=== PATIENT | female | born 1990 | race Two or more races ===

== ENCOUNTER 2025-03-30 09:45 | Observation (INO) | payer BC, MEDICAID ==
[~2025-03-30 09:45] MED LIST: PREN27TA7 OR
--- NOTE | 2025-03-30 11:46 | DVH ---
BIOPHYSICAL PROFILE HISTORY: GDMA1 TECHNIQUE: Multiple transabdominal real-time grayscale sonographic images through the gravid uterus of the fetus with duplex Doppler color flow and M-mode spectral analysis FINDINGS: BIOPHYSICAL PROFILE: breathing score: 2 of 2 movement score: 2of 2 tone score: 2 of 2 Quantitative SHEREE score: 2 of 2 (SHEREE: 16 Cm.) Total score: 8 of 8 The cervix closed Single live fetus in cephalic presentation. heart rate 152 beats per minute. Posterior placenta without previa or abruption IMPRESSION: 1. Biophysical profile score: 8 of 8
--- NOTE | 2025-03-31 09:28 | DVHDS2 ---
Physician Discharge Progress N Final Diagnosis: GDM 32 WKS Operations or Procedures: Operations or Procedures NST REACTIVE REVIWED,SONO Condition on Discharge: Good Disposition: Home Discharge Instructions: Diet: Regular Activity: No Restrictions, As Tolerated Medications: NA Follow Up Care: Specialist: 1W Discharge Statement: "Patient was advised to return to the ER or call 911 if any headaches, dizziness, shortness of breath, chest pain, abdominal pain, bleeding, fevers, or worsening of medical condition. Patient was counseled about treatment plan, medications, possible side effects, patientverbalized understanding. All questions were answered to the best of my ability. This discharge took greater then 30 minutes in planning, reviewing documenta tion, counseling the patient, and discussing with other team members." Visit Coding OBGYN Date of Service: Mar 30, 2025 Billing Provider: TRACI KAHN DO PMO LEAD Common Visit Codes: 97518-SLYMPAM OBS CARE (HIGH) PMO LEAD Procedure Codes: 78142-69- NON-STRESS TEST TRACI KAHN DO Mar 31, 2025 09:28
== END 2025-03-30 11:47 | disposition home or self-care (01) ==
LOC: LDRP 09:45
PROVIDERS: ADMIT Obstetrics & Gynecology; ATTEND Obstetrics & Gynecology
DX: O24.419 Gestational diabetes mellitus in pregnancy, unspecified control (principal); Z3A.32 32 weeks gestation of pregnancy; Z98.890 Other specified postprocedural states
CPT/HCPCS: 76818; 81002; 82962; 94760; G0378; 59025; 76819

== ENCOUNTER 2025-04-05 08:48 | Observation (INO) | payer BC, MEDICAID ==
--- NOTE | 2025-04-05 09:39 | DVH ---
BIOPHYSICAL PROFILE HISTORY: GDMA1 Comparison Study: US BIOPHYSICAL PROFILE on DOS: 03/30/25 TECHNIQUE: Multiple real-time grayscale sonographic images through the gravid uterus of the fetus wi th duplex Doppler color flow and M-mode spectral analysis FINDINGS: BIOPHYSICAL PROFILE: breathing score: 2 movement score: 2 tone score: 2 Quantitative SHEREE score: 2 (SHEREE: 14.7 Cm.) Total score: 8 The cervix is closed and measures 4.0 cm. Single live fetus in cephalic presentation. heart rate 149 beats per minute. Posterior placenta without previa or abruption IMPRESSION: Biophysical profile score: 8
--- NOTE | 2025-04-05 12:32 | DVHDS2 ---
Physician Discharge Progress N Final Diagnosis: GDMA1 Operations or Procedures: Operations or Procedures NST/BPP SHEREE All normal Condition on Discharge: Stable Disposition: Home Discharge Instructions: Diet: Consistent carbohydrate Activity: No Restrictions, As Tolerated Follow Up/Referral: as scheduled Medications: NA Follow Up Care: Discharge Statement: "Patient was advised to return to the ER or call 911 if any headaches, dizziness, shortness of breath, chest pain, abdominal pain, bleeding, fevers, or worsening of medical condition. Patient was counseled about treatment plan, medications, possible side effects, patientverbalized understanding. All questions were answered to the best of my ability. This discharge took greater then 30 minutes in planning, reviewing documentation, counseling the patient, and discussing with other team members." Visit Coding OBGYN Date of Service: Apr 05, 2025 Billing Provider: KANDY DE ANDA DO SECURITY OPERATIONS SPECIALIST Common Visit Codes: 22254-OBV/OBS SAME DATE (MOD) SECURITY OPERATIONS SPECIALIST Procedure Codes: 91118-12- NON-STRESS TEST KANDY DE ANDA DO Apr 05, 2025 12:32
== END 2025-04-05 10:10 | disposition home or self-care (01) ==
LOC: LDRP 08:48 → UNDOADMOB 08:48 → LDRP 09:04 → UNDODISOB 10:10
PROVIDERS: ADMIT Obstetrics & Gynecology; ATTEND Obstetrics & Gynecology
DX: O24.410 Gestational diabetes mellitus in pregnancy, diet controlled (principal); Z3A.33 33 weeks gestation of pregnancy; Z79.899 Other long term (current) drug therapy; Z98.890 Other specified postprocedural states
CPT/HCPCS: 76818; 81002; 82948; 82962; G0378; 59025; 76819

== ENCOUNTER 2025-04-12 08:52 | Observation (INO) | payer BC, MEDICAID ==
--- NOTE | 2025-04-12 10:15 | DVH ---
BIOPHYSICAL PROFILE HISTORY: gdma1 TECHNIQUE: Multiple transabdominal real-time grayscale sonographic images through the gravid uterus of the fetus with duplex Doppler color flow and M-mode spectral analysis FINDINGS: BIOPHYSICAL PROFILE: breathing score: 2 movement score: 2 tone score: 2 Quantitative SHEREE score: 2 (SHEREE: 12.4 Cm.) Total score: 8 The cervix visualized. Single live fetus in cephalic presentation. heart rate 153 beats per minute. Posterior placenta without previa or abruption IMPRESSION: Biophysical profile score: 8
--- NOTE | 2025-04-12 13:24 | DVHDS2 ---
Physician Discharge Progress N Final Diagnosis: [id number] Operations or Procedures: Operations or Procedures nst reactive reviwed,sono Condition on Discharge: Good Disposition: Home Discharge Instructions: Diet: Regular Activity: No Restrictions, As Tolerated Medications: na Follow Up Care: Specialist: 4d Discharge Statement: "Patient was advised to return to the ER or call 911 if any headaches, dizziness, shortness of breath, chest pain, abdominal pain, bleeding, fevers, or worsening of medical condition. Patient was counseled about treatment plan, medications, possible side effects, patientverbalized understanding. All questions were answered to the best of my ability. This discharge took greater then 30 minutes in planning, reviewing documentati on, counseling the patient, and discussing with other team members." Visit Coding OBGYN Date of Service: Apr 12, 2025 Billing Provider: TRACI KAHN DO WORK STATION SUPPORT SPECIALIST Common Visit Codes: 54133-[id number] OBS CARE (HIGH) WORK STATION SUPPORT SPECIALIST Procedure Codes: 29618-33- NON-STRESS TEST TRACI KAHN DO Apr 12, 2025 13:24
== END 2025-04-12 10:35 | disposition home or self-care (01) ==
LOC: LDRP 09:09
PROVIDERS: ADMIT Obstetrics & Gynecology; ATTEND Obstetrics & Gynecology
DX: O24.419 Gestational diabetes mellitus in pregnancy, unspecified control (principal); Z3A.34 34 weeks gestation of pregnancy; Z98.890 Other specified postprocedural states
CPT/HCPCS: 76818; 81002; 82948; 82962; 94760; G0378; 59025; 76819

== ENCOUNTER 2025-04-19 08:45 | Observation (INO) | payer BC, MEDICAID ==
--- NOTE | 2025-04-19 09:27 | DVH ---
BIOPHYSICAL PROFILE HISTORY: GDMA1 TECHNIQUE: Multiple transabdominal real-time grayscale sonographic images through the gravid uterus of the fetus with duplex Doppler color flow and M-mode spectral analysis FINDINGS: BIOPHYSICAL PROFILE: breathing score: 2 movement score: 2 tone score: 2 Quantitative SHEREE score: 2 (SHEREE: 11.7 Cm.) Total score: 8 The cervix not well visualized. Single live fetus in cephalic presentation. heart rate 136 beats per minute. Posterior placenta without previa or abruption IMPRESSION: Biophysical profile score: 8
--- NOTE | 2025-04-19 12:19 | DVHDS2 ---
Physician Discharge Progress N Final Diagnosis: gdm Operations or Procedures: Operations or Procedures nst reactive reviwed,sono Condition on Discharge: Good Disposition: Home Discharge Instructions: Diet: Regular Activity: No Restrictions, As Tolerated Medications: na Follow Up Care: Specialist: 1w Discharge Statement: "Patient was advised to return to the ER or call 911 if any headaches, dizziness, shortness of breath, chest pain, abdominal pain, bleeding, fevers, or worsening of medical condition. Patient was counseled about treatment plan, medications, possible side effects, patientverbalized understanding. All questions were answered to the best of my ability. This discharge took greater then 30 minutes in planning, reviewing documentation, counseling the patient, and discussing with other team members." Visit Coding OBGYN Date of Service: Apr 19, 2025 Billing Provider: TRACI KAHN DO BAND BIAS MACHINE OPERATOR Common Visit Codes: 43144-TORVBMY OBS CARE (HIGH) BAND BIAS MACHINE OPERATOR Procedure Codes: 95647-46- NON-STRESS TEST TRACI KAHN DO Apr 19, 2025 12:19
== END 2025-04-19 10:00 | disposition home or self-care (01) ==
LOC: LDRP 08:45
PROVIDERS: ADMIT Obstetrics & Gynecology; ATTEND Obstetrics & Gynecology
DX: O24.419 Gestational diabetes mellitus in pregnancy, unspecified control (principal); Z98.890 Other specified postprocedural states; Z3A.35 35 weeks gestation of pregnancy
CPT/HCPCS: 76818; 81002; 82948; 82962; G0378; 59025; 76819

== ENCOUNTER 2025-04-26 06:28 | Observation (INO) | payer BC, MEDICAID ==
--- NOTE | 2025-04-26 09:48 | DVH ---
BIOPHYSICAL PROFILE HISTORY: GDMA1 Comparison Study: US BIOPHYSICAL PROFILE on DOS: 04/19/25, US BIOPHYSICAL PROFILE on DOS: 04/12/25, US BIOPHYSICAL PROFILE on DOS: 04/05/25, US BIOPHYSICAL PROFILE on DOS: 03/30/25 TECHNIQUE: Multiple real-time grayscale sonographic images through the gravid uterus of the fetus wi th duplex Doppler color flow and M-mode spectral analysis FINDINGS: BIOPHYSICAL PROFILE: breathing score: 2 movement score: 2 tone score: 2 Quantitative SHEREE score: 2 (SHEREE: 10.1 Cm.) Total score: 8 Single live fetus in cephalic presentation. heart rate 138 beats per minute. Posterior placenta without previa or abruption IMPRESSION: Biophysical profile score: 8
--- NOTE | 2025-04-26 11:08 | DVHDS2 ---
Physician Discharge Progress N Final Diagnosis: GDMA1 Operations or Procedures: Operations or Procedures Encounter for NST/BPP/SHEREE Commentary: Commentary PATIENT: ALEX ALVARADO EACCT: [id number] UNIT: [id number] : 1990 LOC: LD ROOM / BED: TRIAGE3 / A AGE / SEX: 34 / F ADM STATUS: ADM IN SERVICE 0849 ORDERING PHYSICIAN: KANDY DE ANDA DO PROCEDURE(s): BPP - BIOPHYSICAL PROFILE REASON: GDMA1 ORDER NUMBER(s): [id number], ACCESSION NUMBER(s): [id number] BIOPHYSICAL PROFILE HISTORY: GDMA1 Comparison Study: US BIOPHYSICAL PROFILE on DOS: 04/19/25, US BIOPHYSICAL PROFILE on DOS: 04/12/25, US BIOPHYSICAL PROFILE on DOS: 04/05/25, US BIOPHYSICAL PROFILE on DOS: 03/30/25 TECHNIQUE: Multiple real-time grayscale sonographic images through the gravid uterus of the fetus with duplex Doppler color flow and M-mode spectral analysis FINDINGS: BIOPHYSICAL PROFILE: breathing score: 2 movement score: 2 tone score: 2 Quantitative SHREEE score: 2 (SHEREE: 10.1 Cm.) Total score: 8 Single live fetus in cephalic presentation. heart rate 138 beats per minute. Posterior placenta without previa or abruption IMPRESSION: Biophysical profile score: 8 Condition on Discharge: Stable Disposition: Home Discharge Instructions: Diet: Regular Activity: No Restrictions, As Tolerated Follow Up/Referral: As scheduled Medications: NA Follow Up Care: Discharge Statement: "Patient was advised to return to the ER or call 911 if any headaches, dizziness, shortness of breath, chest pain, abdominal pain, bleeding, fevers, or worsening of medical condition. Patient was counseled about treatment plan, medications, possible side effects, patientverbalized understanding. All questions were answered to the best of my ability. This discharge took greater then 30 minutes in planning, reviewing documentation, counseling the patient, and discussing with other team members." Visit Coding OBGYN Date of Service: Apr 26, 2025 Billing Provider: KANDY DE ANDA DO INSTRUCTOR BRIDGE Common Visit Codes: 36915-YBA/OBS SAME DATE (HIGH) INSTRUCTOR BRIDGE Procedure Codes: 72359-14- NON-STRESS TEST KANDY DE ANDA DO Apr 26, 2025 11:08
== END 2025-04-26 10:03 | disposition home or self-care (01) ==
LOC: LDRP 08:45 → UNDOADMOB 08:45 → LDRP 08:50 → UNDODISOB 10:03
PROVIDERS: ADMIT Obstetrics & Gynecology; ATTEND Obstetrics & Gynecology
DX: O24.419 Gestational diabetes mellitus in pregnancy, unspecified control (principal); Z3A.36 36 weeks gestation of pregnancy; Z98.890 Other specified postprocedural states
CPT/HCPCS: 76818; 81002; 82948; 82962; G0378; 59025; 76819

== ENCOUNTER 2025-05-03 08:50 | Observation (INO) | payer BC, MEDICAID ==
[~2025-05-03] VITALS: Ht 160 cm; Wt 70.3 kg
--- NOTE | 2025-05-03 09:31 | DVH ---
BIOPHYSICAL PROFILE HISTORY: GDMA1 Comparison Study: US BIOPHYSICAL PROFILE on DOS: 04/26/25, US BIOPHYSICAL PROFILE on DOS: 04/19/25, US BIOPHYSICAL PROFILE on DOS: 04/12/25, US BIOPHYSICAL PROFILE on DOS: 04/05/25, US BIOPHYSICAL PROFILE on DOS: 03/30/25 TECHNIQUE: Multiple real-time grayscale sonographic images through the gravid uterus of the fetus wi th duplex Doppler color flow and M-mode spectral analysis FINDINGS: BIOPHYSICAL PROFILE: breathing score: 2 movement score: 2 tone score: 2 Quantitative SHEREE score: 2 (SHEREE: 10.4 Cm.) Total score: 8 The cervix is not visualized Single live fetus in cephalic presentation. heart rate 141 beats per minute. Posterior placenta without previa or abruption IMPRESSION: Biophysical profile score: 8
--- NOTE | 2025-05-03 11:42 | DVHDS2 ---
Physician Discharge Progress N Final Diagnosis: gdma1 37wks Operations or Procedures: Operations or Procedures nst reactive reviwed,sono Condition on Discharge: Good Disposition: Home Discharge Instructions: Diet: Consistent carbohydrate Activity: Light activity Medications: na Follow Up Care: Specialist: 4d Discharge Statement: "Patient was advised to return to the ER or call 911 if any headaches, dizziness, shortness of breath, chest pain, abdominal pain, bleeding, fevers, or worsening of medical condition. Patient was counseled about treatment plan, medications, possible side effects, patientverbalized understanding. All questions were answered to the best of my ability. This discharge took greater then 30 minutes in planning, reviewing documen tation, counseling the patient, and discussing with other team members." Visit Coding OBGYN Date of Service: May 03, 2025 Billing Provider: TRACI KAHN DO TRACK SWEEPER Common Visit Codes: 54305-OCUPWYA OBS CARE (HIGH) TRACK SWEEPER Procedure Codes: 68736-88- NON-STRESS TEST TRACI KAHN DO May 03, 2025 11:42
== END 2025-05-03 10:03 | disposition home or self-care (01) ==
LOC: UNDOADMOB 08:50 → LDRP 08:50
PROVIDERS: ADMIT Obstetrics & Gynecology; ATTEND Obstetrics & Gynecology
DX: O24.419 Gestational diabetes mellitus in pregnancy, unspecified control (principal); Z3A.37 37 weeks gestation of pregnancy; Z98.890 Other specified postprocedural states
CPT/HCPCS: 76818; 81002; 82948; 94760; G0378; 59025; 76819

== ENCOUNTER 2025-05-10 05:24 | Observation (INO) | payer BC, MEDICAID ==
--- NOTE | 2025-05-10 10:03 | DVH ---
BIOPHYSICAL PROFILE HISTORY: GDMA1 TECHNIQUE: Multiple transabdominal real-time grayscale sonographic images through the gravid uterus of the fetus with duplex Doppler color flow and M-mode spectral analysis FINDINGS: BIOPHYSICAL PROFILE: breathing score: 2 movement score: 2 tone score: 2 Quantitative SHEREE score: 2 (SHEREE: 10.5 Cm.) Total score: 8 The cervix not well visualized. Single live fetus in cephalic presentation. heart rate 135 beats per minute. Posterior fundal placenta without previa or abruption IMPRESSION: Biophysical profile score: 8
--- NOTE | 2025-05-10 16:23 | DVHDS2 ---
Physician Discharge Progress N Final Diagnosis: GDM 38WKS Operations or Procedures: Operations or Procedures NST REACTIVE REVIWED,SONO Condition on Discharge: Good Disposition: Home Discharge Instructions: Diet: Regular Activity: No Restrictions, As Tolerated Follow Up/Referral: Please return tomorrow 05/11/25 @ 1000 am for induction of labor Medications: NA Follow Up Care: Specialist: 2D Discharge Statement: "Patient was advised to return to the ER or call 911 if any headaches, dizziness, shortness of breath, chest pain, abdominal pain, bleeding, fevers, or worsening of medical condition. Patient was counseled about treatment plan, medications, possible side effects, patientverbalized understanding. All questions were answered to the best of my ability. This discharge took greater then 30 minutes in planning, reviewing documentation, counseling the patient, and discussing with other team members." Visit Coding OBGYN Date of Service: May 10, 2025 Billing Provider: TRACI KAHN DO MASS SPECTROMETRY SPECIALIST Common Visit Codes: [id number] OBS CARE (HIGH) MASS SPECTROMETRY SPECIALIST Procedure Codes: 68987-50- NON-STRESS TEST TRACI KAHN DO May 10, 2025 16:23
== END 2025-05-10 10:25 | disposition home or self-care (01) ==
LOC: LDRP 08:50
PROVIDERS: ADMIT Obstetrics & Gynecology; ATTEND Obstetrics & Gynecology
DX: O24.419 Gestational diabetes mellitus in pregnancy, unspecified control (principal); Z3A.38 38 weeks gestation of pregnancy; Z79.899 Other long term (current) drug therapy; Z98.890 Other specified postprocedural states
CPT/HCPCS: 76818; 81002; 82948; 82962; G0378; 59025; 76819

== ENCOUNTER 2025-05-10 15:01 | Inpatient (IN) | payer BC, MEDICAID ==
[~2025-05-10] VITALS: Ht 162.6 cm; Wt 69.9 kg
[2025-05-10] MEDS ORDERED: LACTATED RINGER'S 1,000 ML IV SCH (15:45)
[2025-05-10] MEDS ORDERED: LIDOCAINE 2%HCL (LOCAL ANESTH.) INJ 20ML MDV IJ PRN (15:45)
--- NOTE | 2025-05-10 16:01 | DVHHP2 ---
OB CC & HPI Date Date of Admission: May 10, 2025 Patient Identification: : 7 Para: 6 EDC: May 19, 2025 EGA: 38wks Chief Complaints: Reason for admission: active labor, rupture of membranes Admission Nurse Assessment Rev: No History of Present Complaints pt is admitted for srom and early labor Past Medical History Cardiac: No pertinent Hx Pulmonary: No pertinent Hx Central Nervous System: No pertinent Hx GI: No pertinent Hx Hemotology/Oncology: No pertinent Hx Hepatobiliary: No pertinent Hx Psychiatric: No pertinent Hx Musculoskeletal: No pertinent Hx Rheumotologic: No pertinent Hx Infectious Disease: No peritnent Hx ENT: No pertinent Hx Renal/: No pertinent Hx Endocrine: No pertinent Hx Dermatology: No pertinent Hx Past Surgical History: No pertinent Hx OB History OB History Care: Good Care Ultrasounds: Normal mid trimester US Obstetrical Complications: Gestational Diabetes Medical Complications: None Allergies: Coded Allergies: NO KNOWN ALLERGIES (Unverified , 02/17/14) Home Meds Reported Medications Vit W/ Ferrous Fumara () 1 Tab Tab, 1 TAB OR DAILY, TAB 02/18/14 Current Medications Current Medications Medications (Trade) Dose Ordered Sig/Roshni Route PRN Reason Start Time Stop Time Status Last Admin Lactated Ringer's 1,000 ml @ 125 mls/hr Q8H IV 05/10/25 15:45 Witch Kayla (Tucks) 1 pad PRN PRN TOP PERINEAL AREA DISCOMFORT 05/10/25 15:45 Sodium Lauryl Sulfate (Phisoderm) 240 ml PRN PRN TOP PERINEAL AREA DISCOMFORT 05/10/25 15:45 Benzocaine (Dermoplast) 1 applic PRN PRN TOP PERINEAL AREA DISCOMFORT 05/10/25 15:45 Lidocaine HCl (Xylocaine) 20 ml ONCE PRN IJ PERINEAL AREA DISCOMFORT 05/10/25 15:45 Family & Social History Family/Social History Blood Type: B+ Rubella: unknown RPR/VDRL: Negative GBS Status: Negative HBsAG: Negative Review of Systems Constitutional: No symptom reported Ears, Nose, & Throat: No symptom reported Eyes: No symptom reported Pulmonary/Respiratory: No symptom reported Cardiovascular: No symptom reported Gastrointestinal: No symptom reported Genitourinary: No symptom reported Musculoskeletal: No symptom reported Skin: No symptom reported Psychiatric: No symptom reported Endocrine: No symptom reported Hemotologic/Lymphatic: No symptom reported OB Admission Exam Physical Exam HEENT: TMs Normal, Fontanelles Normal, Nasal Mucosa Normal, Eyes non-injected, Oropharynx Normal, PERRLA, Moist Membranes, EOMI Heart: Rhythm Normal Lungs: Clear Abdomen: Non tender Extremities: Normal Reflexes: Normal Cervical Dilatation: 3cm Effacement: 75% Station: -2 Membranes: Ruptured Amniotic Fluid: Clear Heart Rate: 130's Accelerations: Accelerations Present Decelerations: No Decelerations Short Term Variability: Present Detention Variability: Average (6-25) Contractions on Admission: < 5 Minutes Apart Intensity: Moderate OB Plan Plan Admitting Diagnosis: Labor/SROM gdm Plan: Expectant Management Induction Methd: Pitocin protocol Other Plan: informed consent obtained Visit Coding OBGYN Date of Service: May 10, 2025 Billing Provider: TRACI KAHN DO MORTGAGE FUNDER Common Visit Codes: 64258-KHPGOPL OBS CARE (HIGH) MORTGAGE FUNDER Procedure Codes: 72608-60- NON-STRESS TEST TRACI KAHN DO May 10, 2025 16:01
[2025-05-10] MEDS ORDERED: TERBUTALINE SULFATE 1 MG/ML 1ML VIAL SC PRN (16:45)
[2025-05-10 16:50] LABS: Hematocrit 37.0 % (36.0-46.0); Hemoglobin 12.6 g/dL (12.2-16.2); Mean Corpuscular Hemoglobin 29.5 pg (28.0-32.0); Mean Corpuscular Volume 86.8 fL (80.0-100.0); Nucleated Red Blood Cells % 0.1 %
[2025-05-10 17:03] LABS: INR 0.92 (0.9-1.15); Partial Thromboplastin Time 29.9 SEC (24.5-34.5); Prothrombin Time 9.8 sec (9.3-11.8)
[2025-05-10 17:14] LABS: Alanine Aminotransferase 11 U/L (7-40); Albumin 3.5 g/dL (3.2-4.8); Alkaline Phosphatase 109 U/L (46-116); Anion Gap 10 (5-15); BUN/Creatinine Ratio 17.0 (10.0-20.0); Bilirubin, Total 0.4 mg/dL (0.2-1.0); Calcium 9.0 mg/dL (8.7-10.4); Carbon Dioxide 23 mmol/L (20-31); Chloride 104 mmol/L (98-107); Glucose 75 mg/dL (74-106); Potassium 3.8 mmol/L (3.5-5.1); Sodium 137 mmol/L (136-145); Total Protein 6.3 g/dL (5.7-8.2)
[2025-05-10 17:19] LABS: Blood Urea Nitrogen 8 mg/dL (9-23)
[2025-05-10] MEDS: DERMOPLAST 60ML BOTTLE TOP PRN (17:31)
[2025-05-10] MEDS: LACT. RINGERS/OXYTOCIN 20UNITS 1,000 ML IV SCH (17:31)
[2025-05-10] MEDS: WITCH HAZEL-GLYCERIN PAD TOP PRN (17:31)
[2025-05-10] MEDS: PHISODERM TOP SOLN 240ML BTL TOP PRN (17:31)
[2025-05-10] MEDS ORDERED: CARBOPROST TROMETHAMINE 250 MCG/1ML VIAL IM PRN (20:15)
[2025-05-10] MEDS ORDERED: DIPHENOXYLATE W/ATROPINE 2.5 MG TAB PO ONE (20:15)
[2025-05-10] MEDS: DIPHENOXYLATE W/ATROPINE 2.5 MG TAB PO ONE (22:00)
[2025-05-10] MEDS ORDERED: ONDANSETRON HCL 4 MG/2 ML VIAL IV PRN (22:30)
--- NOTE | 2025-05-10 22:53 | DVHPN2 ---
CNM Labor Progress Note Date and Time Seen Date Seen: May 10, 2025 Time Seen: 22:15 Subjective Patient reports: Other Subjective Comment Heavenly Barry is a 34 yo with IUP at 38w5d at the [facility] for SROM and labor. Upon entry to room, patient states she is feeling more pressure and the contractions are now 5/10 on the pain scale. [place], PGY1 and Primary RN at bedside with CNM Objective Vital Signs VSS. See CPN Monitoring Method Monitoring Method: External Heart Rate Heart Rate Baseline: 140 Heart Rate Variability: Moderate Presence of FHR Accelerations: No Presence of FHR Decelerations: Yes Heart Rate Type of Decel: Early Deceleraions, Variable Decelerations, L ate Decelerations Comment on Trends or Patterns: category 2 Contractions Contractions Frequency: Other (every 2-3 minutes) Contractions Intensity: Moderate Contractions Resting Tone: Relaxed Membranes Membranes: Ruptured Amniotic Fluid Color: Clear Vaginal Exam Vag Exam Deferred: No Vaginal Exam Dilation: 6 Vaginal Exam Effacement: 80 Vaginal Exam Station: -2 Vaginal Exam Presentation: VTX Vaginal Exam Show: None Medications Medications - Pitocin: Yes Medication - Epidural: No Lab Results Lab Results Current Medications Medications (Trade) Dose Ordered Sig/[facility] Start Time Stop Time Status Last Admin Dose Admin Lactated Ringer's 1,000 ml @ 125 mls/hr Q8H 05/10/25 15:45 Witch Kayla (Tucks) 1 pad PRN PRN 05/10/25 15:45 05/10/25 17:31 1 PAD Sodium Lauryl Sulfate (Phisoderm) 240 ml PRN PRN 05/10/25 15:45 05/10/25 17:31 240 ML Benzocaine (Dermoplast) 1 applic PRN PRN 05/10/25 15:45 05/10/25 17:31 1 APPLIC Lidocaine HCl (Xylocaine) 20 ml ONCE PRN 05/10/25 15:45 Oxytocin 1,000 ml @ 6 ml/hr Q24H 05/10/25 16:45 05/10/25 17:31 6 ML/HR Terbutaline Sulfate (Brethine Inj) 0.25 mg ONCE PRN 05/10/25 16:45 Oxytocin 500 ml @ 999 mls/hr Q31M ONCE 05/10/25 16:45 05/10/25 17:15 DC Oxytocin 500 ml @ 125 mls/hr Q4H ONCE 05/10/25 17:15 05/10/25 21:14 DC Methylergonovine Maleate (Methergine) 0.2 mg ONCE ONCE 05/10/25 20:15 05/10/25 20:16 DC Carboprost Tromethamine (Hemabate) 250 mcg Q20M PRN 05/10/25 20:15 05/10/25 20:56 DC Diphenoxylate HCl/ Atropine (Lomotil Tablet) 10 mg ONCE ONCE 05/10/25 22:00 05/10/25 22:05 DC Laboratory Tests Test 05/10/25 22:58 05/10/25 16:10 Range/Units POC Glucose 86 70-106 mg/dl White Blood Count 8.1 4.4-10.8 10^3/uL Red Blood Count 4.26 4.0-5.20 10^6/uL Hemoglobin 12.6 12.2-16.2 g/dL Hematocrit 37.0 36.0-46.0 % Mean Corpuscular Volume 86.8 80.0-100.0 fL Mean Corpuscular Hemoglobin 29.5 28.0-32.0 pg Mean Corpuscular Hemoglobin Concent 34.0 32.0-36.0 g/dL Red Cell Distribution Width 14.8 H 11.8-14.3 % Platelet Count 183 140-450 10^3/uL Mean Platelet Volume 10.3 6.9-10.8 fL Neutrophils (%) (Auto) 63.6 37.0-80.0 % Lymphocytes (%) (Auto) 27.5 10.0-50.0 % Monocytes (%) (Auto) 7.5 0.0-12.0 % Eosinophils (%) (Auto) 1.0 0.0-7.0 % Basophils (%) (Auto) 0.4 0.0-2.0 % Neutrophils # (Auto) 5.1 1.6-8.6 10 ^3/uL Lymphocytes # (Auto) 2.2 0.4-5.4 10 ^3/uL Monocytes # (Auto) 0.6 0-1.3 10 ^3/uL Eosinophils # (Auto) 0.1 0-0.8 10 ^3/uL Basophils # (Auto) 0 0-0.2 10 ^3/uL Nucleated Red Blood Cells 0.1 % Prothrombin Time 9.8 9.3-11.8 sec Prothrombin Time INR 0.92 0.9-1.15 Activated Partial Thromboplast Time 29.9 24.5-34.5 SEC Sodium Level 137 136-145 mmol/L Potassium Level 3.8 3.5-5.1 mmol/L Chloride Level 104 98-107 mmol/L Carbon Dioxide Level 23 20-31 mmol/L Anion Gap 10 5-15 Blood Urea Nitrogen 8 L 9-23 mg/dL Creatinine 0.47 L 0.550-1.02 mg/dL Glomerular Filtration Rate Calc 128 >90 mL/min BUN/Creatinine Ratio 17.0 10.0-20.0 Serum Glucose 75 74-106 mg/dL Calcium Level 9.0 8.7-10.4 mg/dL Total Bilirubin 0.4 0.2-1.0 mg/dL Aspartate Amino Transferase (AST) 23 13-40 U/L Alanine Aminotransferase (ALT) 11 7-40 U/L Alkaline Phosphatase 109 46-116 U/L Total Protein 6.3 5.7-8.2 g/dL Albumin 3.5 3.2-4.8 g/dL Treponema pallidum Antibody Non-reactive Negative Hepatitis C Antibody Negative Negative Assessment Assessment -34 yo with IUP at 38w5d -SROM and active labor -GDMA1 -GBS negative -Category 2 tracing Plan Plan -Continue repositioning patient for heart rate tracing and maternal comfort -Continue titrating pitocin per protocol. OK to delay increasing at this time as UCs are 2-3 min apart and cervical change is occurring -GDMA1. Accucheck q4 hours [address] Davis -Anticipate normal spontaneous vaginal delivery Plan discussed with: Patient Visit Coding OBGYN Date of Service: May 10, 2025 Billing Provider: NARAYAN MARTE CNM CAMP DINING ROOM ATTENDANT Common Visit Codes: [id number] INP/OBS CARE(MOD) NARAYAN MARTE CNM May 10, 2025 22:53
[2025-05-10] MEDS: LACT. RINGERS/OXYTOCIN 20UNITS 500 ML IV ONE ×2 (23:21→23:48)
--- NOTE | 2025-05-10 23:33 | LDN2 ---
Labor and Delivery Note Date 05/10/25 Age 34 7 Para 6->7 EDC 05/19/2025 EGA 38w5d Vaginal Delivery: VTX Vacuum Assisted: No Placenta: Spontaneous (kristina) Sex: Female Weight 2780g. 6lbs, 2oz Apgars 9/9 Nuchal Cord Transected: No Amniotic Fluid: Clear Anesthesia N/A Episiotomy: No Extension: No EBL 50 mL Labs Blood Bank 05/10/25 16:10: Blood Type B POSITIVE Comments/Significant Med Yasmin [place], PGY1 assisted with delivery and CNM present at bedside At 2303 this 34yo now delivered a viable Female infant by w/ APGARS 9/9. ANTHONY. Infant placed skin to skin on pts abdomen r/t shorter cord length. TXA started IVPB as hemorrhage prophylaxis r/t grand multiparity Cord clamped and cut by FOB after 3 minutes. Cord blood collected and sent. Intact 3-vessel cord and intact placenta (Kristina), delivered spontaneously. Pitocin IV bolus started. Placenta sent to pathology. Patient's pain was well managed without epidural or medication Perineum intact, no bleeding. Rectal mucosa and sphincter intact. Fundal massage performed. Fundus at U-1, firm, midline, and light lochia. QBL 50ml in drape. VSS. Count correct x2. Patient to care and baby to couplet care, both stable. Visit Coding OBGYN Date of Service: May 10, 2025 Billing Provider: NARAYAN MARTE CNM DRAG CAR RACER Common Visit Codes: [id number] INP/OBS CARE(HIGH) DRAG CAR RACER Procedure Codes: 81541-NHT DELIVERY ONLY NARAYAN MARTE CNM May 10, 2025 23:33
[2025-05-10] MEDS ORDERED: ONDANSETRON ODT 4 MG TAB PO PRN (23:45)
[2025-05-10] MEDS ORDERED: ACETAMINOPHEN 325 MG TAB PO PRN (23:45)
[2025-05-11] VITALS (7 sets, daily range): BP systolic 97–105; BP diastolic 52–63; PULSE 68–80; RESP 14–18; TEMP 97.6–98.5; O2SAT 98
[2025-05-11] MEDS: METHYLERGONOVINE MALEATE 0.2 MG/ML AMP IM ONE (02:15)
--- NOTE | 2025-05-11 02:21 | DVHPN2 ---
Progress Note Date Seen: May 11, 2025 Subjective Heavenly is still in bed upon entry to room. primary RN is about to get her up to walk to bathroom for the first time SUBJECTIVE -Lochia minimal -Tolerating regular diet well. -Pain relieved with oral medication PRN -Passing flatus but no BM yet -Breast feeding. vital signs Vital Sign Date Time Temp Pulse Resp B/P (MAP) Pulse Ox O2 Delivery O2 Flow Rate FiO2 05/11/25 01:00 98.2 76 16 101/52 (68) 98.2 05/11/25 01:00 Room Air Total Intake and Output 05/10/25 05/10/25 05/11/25 15:00 23:00 07:00 Output Total 600 ml Balance -600 ml medications Current Medications Medications Dose Ordered Sig/Roshni Route Start Time Stop Time Status Last Admin Dose Admin Lactated Ringer's 1,000 ml @ 125 mls/hr Q8H IV 05/10/25 15:45 Witch Kayla 1 pad PRN PRN TOP 05/10/25 15:45 05/10/25 17:31 1 PAD Sodium Lauryl Sulfate 240 ml PRN PRN TOP 05/10/25 15:45 05/10/25 17:31 240 ML Benzocaine 1 applic PRN PRN TOP 05/10/25 15:45 05/10/25 17:31 1 APPLIC Lidocaine HCl 20 ml ONCE PRN IJ 05/10/25 15:45 Oxytocin 1,000 ml @ 6 ml/hr Q24H IV 05/10/25 16:45 05/10/25 17:31 6 ML/HR Terbutaline Sulfate 0.25 mg ONCE PRN SC 05/10/25 16:45 Ondansetron HCl 4 mg Q6HPRN PRN IV 05/10/25 22:30 Ibuprofen 600 mg Q6HP PRN PO 05/10/25 23:45 Acetaminophen 650 mg Q4HP PRN PO 05/10/25 23:45 Ondansetron HCl 4 mg Q4HPRN PRN PO 05/10/25 23:45 laboratory and microbiology Laboratory Tests 05/10/25 16:10 Test 05/10/25 16:10 Range/Units Serum Glucose 75 74-106 mg/dL Objective OBJECTIVE -A&O x4. No apparent distress. Affect appropriate -Afebrile, VSS -Chest: heart and lung sounds normal. -Breasts: Nipples intact w/o cracks or soreness -Abdomen: normal BS, soft, non-tender, no rebound or guarding, fundus firm @ U- 1, lochia minimal -Perineum: deferred -Extremities: no edema or tenderness Problems(with codes): (1) (normal spontaneous vaginal delivery) Assessment/Plan ASSESSMENT -34yo now ppd #1 s/p doing well. -Blood Type: B+ -Breast feeding -Rubella Immune -GDMA1 PLAN -Continue pain management with oral medications as previously ordered -Increase fluid intake and fiber in diet to promote regular bowel movements, Laxative PRN -Encouraged patient to continue taking vitamin and iron -Continue routine care Plan discussed with: Patient Visit Coding OBGYN Date of Service: May 11, 2025 Billing Provider: NARAYAN MARTE CNM TYPE CASTING MACHINE OPERATOR Common Visit Codes: [id number] INP/OBS CARE(MOD) NARAYAN MARTE CNM May 11, 2025 02:20
[2025-05-11] MEDS: IBUPROFEN 600 MG TAB PO PRN (17:41)
[2025-05-12 03:00] VITALS: RESP 18
--- NOTE | 2025-05-12 04:19 | DVHPN2 ---
Progress Note Date Seen: May 12, 2025 Subjective S: Lochia minimal Tolerating regular diet well. Ambulating and voiding well w/o feeling lightheaded or dizzy. Has had BM x1. Breast feeding. Contraceptive plan: male Condom Desires and requests to be discharged home today vital signs Vital Sign Date Time Temp Pulse Resp B/P (MAP) Pulse Ox O2 Delivery O2 Flow Rate FiO2 05/12/25 03:00 18 05/11/25 23:00 98.0 68 101/58 (72) 98 98.0 05/11/25 18:30 Room Air Total Intake and Output 05/11/25 05/11/25 05/12/25 15:00 23:00 07:00 Output Total 700 ml Balance -700 ml medications Current Medications Medications Dose Ordered Sig/Roshni Route Start Time Stop Time Status Last Admin Dose Admin Lactated Ringer's 1,000 ml @ 125 mls/hr Q8H IV 05/10/25 15:45 Cancel Witch Kayla 1 pad PRN PRN TOP 05/10/25 15:45 05/10/25 17:31 1 PAD Sodium Lauryl Sulfate 240 ml PRN PRN TOP 05/10/25 15:45 05/10/25 17:31 240 ML Benzocaine 1 applic PRN PRN TOP 05/10/25 15:45 05/10/25 17:31 1 APPLIC Lidocaine HCl 20 ml ONCE PRN IJ 05/10/25 15:45 Terbutaline Sulfate 0.25 mg ONCE PRN SC 05/10/25 16:45 Ondansetron HCl 4 mg Q6HPRN PRN IV 05/10/25 22:30 Ibuprofen 600 mg Q6HP PRN PO 05/10/25 23:45 05/11/25 17:41 600 MG Acetaminophen 650 mg Q4HP PRN PO 05/10/25 23:45 Ondansetron HCl 4 mg Q4HPRN PRN PO 05/10/25 23:45 laboratory and microbiology Laboratory Tests 05/10/25 16:10 Test 05/10/25 16:10 Range/Units Serum Glucose 75 74-106 mg/dL Objective O: A&O x3 NAD. Afebrile, VSS Chest: heart and lung sounds normal. Breasts: Nipples intact w/o cracks or soreness Abdomen: normal BS, soft, non-tender, no rebound or guarding, fundus firm @ U- 1, lochia minimal Perineum:- no edema, or erythema, Extremities: no edema or tenderness Lochia - minimal Assessment/Plan A/P 34yo now ppd#2 s/p doing well. GDMA1 Blood Type: B Rh: Positive Breast feeding Rubella Immune Pain control with oral medications Bowel regimen: Increase fluid intake and fiber in diet, Laxative PRN PP BCM Plan: Male condom Discharge plan: May discharge home later today if condition remains stable Plan discussed with: Patient Visit Coding OBGYN Date of Service: May 12, 2025 Billing Provider: ALLIE GONZALEZ CNM HIDE COOKING OPERATOR Common Visit Codes: [id number] INP/OBS CARE(HIGH) ALLIE GONZALEZ CNM May 12, 2025 04:19
--- NOTE | 2025-05-12 04:22 | DVHDS2 ---
Discharge Summary Date of Admission May 10, 2025 at 15:13 Date of Discharge: May 12, 2025 Admitting Diagnosis <> IUP at 38w 5d <> GDMA1 <> SROM <> Early Labor <> Grand multipara Wounds: none Labs/Diagnostic Data: Laboratory Results Test 05/10/25 22:58 05/10/25 16:10 POC Glucose 86 mg/dl (70-106) White Blood Count 8.1 10^3/uL (4.4-10.8) Red Blood Count 4.26 10^6/uL (4.0-5.20) Hemoglobin 12.6 g/dL (12.2-16.2) Hematocrit 37.0 % (36.0-46.0) Mean Corpuscular Volume 86.8 fL (80.0-100.0) Mean Corpuscular Hemoglobin 29.5 pg (28.0-32.0) Mean Corpuscular Hemoglobin Concent 34.0 g/dL (32.0-36.0) Red Cell Distribution Width 14.8 % (11.8-14.3) Platelet Count 183 10^3/uL (140-450) Mean Platelet Volume 10.3 fL (6.9-10.8) Neutrophils (%) (Auto) 63.6 % (37.0-80.0) Lymphocytes (%) (Auto) 27.5 % (10.0-50.0) Monocytes (%) (Auto) 7.5 % (0.0-12.0) Eosinophils (%) (Auto) 1.0 % (0.0-7.0) Basophils (%) (Auto) 0.4 % (0.0-2.0) Neutrophils # (Auto) 5.1 10 ^3/uL (1.6-8.6) Lymphocytes # (Auto) 2.2 10 ^3/uL (0.4-5.4) Monocytes # (Auto) 0.6 10 ^3/uL (0-1.3) Eosinophils # (Auto) 0.1 10 ^3/uL (0-0.8) Basophils # (Auto) 0 10 ^3/uL (0-0.2) Nucleated Red Blood Cells 0.1 % Prothrombin Time 9.8 sec (9.3-11.8) Prothrombin Time INR 0.92 (0.9-1.15) Activated Partial Thromboplast Time 29.9 SEC (24.5-34.5) Sodium Level 137 mmol/L (136-145) Potassium Level 3.8 mmol/L (3.5-5.1) Chloride Level 104 mmol/L (98-107) Carbon Dioxide Level 23 mmol/L (20-31) Anion Gap 10 (5-15) Blood Urea Nitrogen 8 mg/dL (9-23) Creatinine 0.47 mg/dL (0.550-1.02) Glomerular Filtration Rate Calc 128 mL/min (>90) BUN/Creatinine Ratio 17.0 (10.0-20.0) Serum Glucose 75 mg/dL (74-106) Calcium Level 9.0 mg/dL (8.7-10.4) Total Bilirubin 0.4 mg/dL (0.2-1.0) Aspartate Amino Transferase (AST) 23 U/L (13-40) Alanine Aminotransferase (ALT) 11 U/L (7-40) Alkaline Phosphatase 109 U/L (46-116) Total Protein 6.3 g/dL (5.7-8.2) Albumin 3.5 g/dL (3.2-4.8) Treponema pallidum Antibody Non-reactive (Negative) Hepatitis C Antibody Negative (Negative) Other Laboratory Tests 05/10/25 16:10 Brief Hx & Hospital Course: Admitted on 05/10/25 at 38w 5d EGA for SROM and Early labor GDMA1. Labor augmented with Oxytocin. Patient then had an uneventful labor. She progressed to 2nd stage of labor and had a over an intact perineum w/o labor epidural or analgesic ( See Delivery Note for details) Normal course; meeting milestones w/o any problem or complications. Operations or Procedures <> Labor Augmentation <> Condition at Discharge: Good Final Diagnosis/Problems List Term Delivered Discharge Disposition: Home Discharge Instruct/Medications Diet: Regular Activity: No Restrictions, As Tolerated Activity comment: Advance as tolerated. Balance activities with rest periods No heavy lifting, pushing or straining. Pelvic rest x 6weeks Follow Up/Referral: Follow up with OB Provider in 1 week Medications: Ibuprofen 600mg every 6 hours as needed for pain. Continue Vitamin Scheduled Vit W/ Ferrous Fumara (), 1 TAB OR DAILY, (Reported) Discharge Statement: Instructions: > self care instructions given. > Pt educated on >- emergency signs and symptoms >- pre-eclampsia precautions, signs of infection, PPH & of PPD "Patient was advised to return to the ER or call 911 if any headaches, dizziness, shortness of breath, chest pain, abdominal pain, bleeding, fevers, or worsening of medical condition. Patient was counseled about treatment plan, medications, possible side effects, patientverbalized understanding. All questions were answered to the best of my ability. This discharge took greater then 30 minutes in planning, reviewing documentation, counseling the patient, and discussing with other team members." ASSESSMENT ASSESSMENT Hospital Course Admitted on 05/10/25 at 38w 5d EGA for SROM and Early labor GDMA1. Labor augmented with Oxytocin. Patient then had an uneventful labor. She progressed to 2nd stage of labor and had a over an intact perineum w/o labor epidural or analgesic ( See Delivery Note for details) Normal course; meeting milestones w/o any problem or complications. Assessment <> Day #2 <> Term Delivered Visit Coding OBGYN Date of Service: May 12, 2025 Billing Provider: ALLIE GONZALEZ CNM WORKSHOP MANAGER Common Visit Codes: 61060-SDV/OBS DISCH DAY >30MIN ALLIE GONZALEZ CNM May 12, 2025 04:22
[2025-05-12 07:15] VITALS: BP 115/58; PULSE 80; RESP 14; TEMP 97.9; O2SAT 97
== END 2025-05-12 09:15 | disposition home or self-care (01) | DRG 807 ==
LOC: LDRP 15:01 → OBSVTOIN 15:13
PROVIDERS: ADMIT Obstetrics & Gynecology; ATTEND Obstetrics & Gynecology
PROC: 10E0XZZ Delivery of Products of Conception, External Approach (ICD-10-PCS; principal; 2025-05-10)
DX: O24.420 Gestational diabetes mellitus in childbirth, diet controlled (principal); Z37.0 Single live birth; Z3A.38 38 weeks gestation of pregnancy
CPT/HCPCS: 36415; 59025; 59409; 80053; 81002; 82962; 85025; 85610; 85730; 86780; 86803; 86850; 86900; 86901; 94760; 96360; 96361; 96365; 96366; G0378; J2405; J2590